=== PATIENT | female | born 1970 | race Caucasian/White ===

== ENCOUNTER 2016-08-12 09:37 | Emergency (ER) | payer BC ==
[2016-08-12] MEDS ORDERED: ONDANSETRON 4 MG/2 ML VIAL IVP ONE (10:03)
[2016-08-12] MEDS ORDERED: MORPHINE SULFATE 4 MG/1 ML IVP ONE ×2 (10:03→11:56)
[2016-08-12] MEDS ORDERED: Sodium Chloride 0.9% 1,000 ML PRIMARY IV ONE (10:03)
[2016-08-12 10:06] VITALS: TEMP 98.6
--- NOTE | 2016-08-12 10:10 | PDOC ---
Female Problem HPI - General Chief Complaint: Genitourinary Complaint Stated Complaint: LEFT LOWER ABD PAIN, DECR URINATION SINCE LAST NOC Date Seen by Provider: 08/12/16 Time Seen by Provider: 10:05 Source: POSITIVE: Patient Exam Limitations: POSITIVE: No limitations Nurse's Notes Reviewed & Considered: Yes - History of Present Illness Initial Comments: Patient was seen at the medical office building this morning because of left lower quadrant and suprapubic pain, as well as burning sensation in her bladder. She was sent here for further evaluation. Patient states that on July 24 she developed vaginal bleeding. This is the first she has had any vaginal bleeding since 2013. Her pain has continued to increase since July 24 and she continues to have some vaginal bleeding. She had an episode of diarrhea during the initial onset of symptoms but no further diarrhea. She has subjective fevers, chills and sweats. She doesn't presently have a headache. She does have sinus congestion. Denies any cough, shortness of breath, chest pain. Body Location Affected: REPORTS: Abdomen Timing: REPORTS: Constant Duration: >1 week Severity: Moderate Quality: REPORTS: Burning, "Pain", Sharpness, Stabbing, Throbbing Location of Pain: REPORTS: Left, Abdominal Pain, Sharp Vaginal Bleeding: REPORTS: Abnormal Bleeding : 2 Para: 2 : REPORTS: Post-Menopausal Sexual History: REPORTS: Active Urinary Symptoms: REPORTS: Blood in Urine Discharge: REPORTS: Vaginal Discharge (Blood discharge.) Recent Care Received: REPORTS: Recently Seen (Seen this morning at the medical office building.) Any Prior Injuries Related to Current Complaint?: No - Patient Home Medications Home Medications: Home Medications Cetirizine HCl 10 mg PO DAILY 03/02/14 Loratadine [Claritin] 10 mg PO DAILY 03/02/14 Fluticasone Propionate [Flonase Allergy Relief] 1 spr KATYA BID #1 spr 03/09/15 Bupropion HCl [Wellbutrin Sr] 150 mg ORAL BID #180 tab 01/10/16 Acetaminophen [Tylenol] 650 mg PO PRN PRN 08/12/16 - Patient Allergies Allergies/Adverse Reactions: Allergies Allergy/AdvReac Type Severity Reaction Status Date / Time Penicillins Allergy Unknown NOT Verified 08/12/16 09:50 APPLICABLE Past Medical History - heen HEENT History: Other (please comment) Additional HEENT History: WEARS GLASSES Cardiovascular History: Denies History Respiratory History: Other (please comment) Additional Respiratory History: SEASONAL ALLERGIES Gastrointestinal History: Other (please comment) Additional Gastrointestinal History: PILONIDAL CYST Genitourinary History: Denies History, Other (please comment) Additional Genitourinary History: KIDNEY INFECTION Endocrine History: Denies History Musculoskeletal History: Denies History Prosthesis or Implant: No Neurological History: Denies History Blood Disorders: Denies History Psychiatric History: Depression, Anxiety Disorders History of Sexually Transmitted Diseases: No Female Reproductive History: Other (please comment) Additional Female Reproductive History: UTERAL ABLATION 2013 LMP: 2013 Cancer History: Skin In Past Year Been Physically Harmed or Verbally Threatened: No (PER PATIENT) History of MDRO: No History of Other Communicable Diseases: No Tobacco Use: Never Smoker Alcohol Use: Occasionally Substance Use Type: None Previous Surgical History: Yes Type / Date of Surgery: PILONIDAL CYST REMOVAL. ABD LAPROSCOPY TO DETERMINE DIFFICULTIES. TUBAL LIGATION. UTERAL ABLATION 2013 Anesthesia Reactions: No Malignant Hyperthermia: No Family History of Malignant Hyperthermia: No Significant Family History: Other (please comment) Additional Family History: FATHER HTN. MOTHER HTN ROS - Limitations ROS Limitations: No Limitations Constitution: REPORTS: Chills, Fever Cardiovascular: REPORTS: Denies Cardiac Symptoms Respiratory: REPORTS: Denies Resp Symptoms Neurological: REPORTS: Headache Gastrointestinal: REPORTS: Abdominal Pain, Nausea Endocrine: REPORTS: Denies Symptoms Musculoskeletal: REPORTS: Denies MS Symptoms Genitourinary: REPORTS: Discharge, Hematuria Eyes: REPORTS: Denies Symptoms ENT: REPORTS: Denies Symptoms Skin: REPORTS: Denies Skin Symptoms Lympathic: REPORTS: Denies Lympathic Symptoms Immunologic: POSITIVE: Denies Symptoms Psychiatric: POSITIVE: Denies Psych Symptoms Female Genitourinary Exam - General Appearance General Appearance: POSITIVE: Alert, Cooperative, No Acute Distress, No Evidence of Trauma - HEENT HEENT: POSITIVE: Head Inspection Nml, Eyes Inspection Nml, Ears Inspection Nml, Nose Inspection Nml, PERRL, EOMI - Neck Neck: POSITIVE: Normal Inspection, No Apparent Injury - Respiratory Respiratory: POSITIVE: No Respiratory Distress, Breath Sounds Normal, Chest Non- Tender - Cardiovascular Cardiovascular: POSITIVE: Regular Rate and Rhythm, Heart Sounds Normal - Abdomen Abdomen: POSITIVE: Soft, Normal Bowel Sounds, Tenderness (Left lower quadrant, no guarding, no rebound.) - Back Back: POSITIVE: Normal Inspection - Genital / Rectal Pelvic Exam: POSITIVE: External Exam Normal - Skin Skin: POSITIVE: Intact, Normal For Race, Warm, Dry, No Rash - Extremities Extremity: Non-Tender: (All Extremities), Normal ROM: (All Extremities), Normal Inspection: (All Extremities) - Neurological / Psychological Neurological: POSITIVE: Affect Apporpriate, Oriented X3 Female Genitourinary Progress - Results Reviewed by me Xrays/CTs/US Reviewed by me: Yes Discussed with Radiologist: Yes Lab Results Reviewed: Yes Lab Results:: Laboratory Results 08/12/16 08/12/16 Range/Units 10:20 10:30 WBC 8.70 (4.8-10.8) 10^3/uL RBC 4.60 (4.20-5.40) 10^6/uL Hgb 13.2 (12.0-16.0) g/dL Hct 38.4 (37.0-47.0) % MCV 83.5 (81-99) FL MCH 28.7 (27-31) PG MCHC 34.4 (33-37) g/dL RDW Std Deviation 39.5 (39-50) fL RDW Coeff of [place] 13.1 (11.5-14.5) % Plt Count 272 (140-350) 10*3/uL MPV 9.6 (7.4-12.2) FL Immature Gran % (Auto) 0.1 (0-5) % Neut % (Auto) 67.9 (50-80) % Lymph % (Auto) 23.9 (10-50) % [place] % (Auto) 7.6 (5-15) % Eos % (Auto) 0.3 (0-8) % Baso % (Auto) 0.2 (0-1) % Immature Gran # (Auto) 0.01 10*3/UL Neut # (Auto) 5.90 10*3/UL Lymph # (Auto) 2.08 10*3/uL [place] # (Auto) 0.66 (0.3-0.8) 10*3/UL Eos # (Auto) 0.03 10*3/UL Baso # (Auto) 0.02 10*3/UL WBC Morphology Comment Normal morphology (NORM) Plt Morphology Comment Normal morphology (NORM) RBC Morph Comment Normal morphology (NORM) ESR 10 (0-20) MM/HR Sodium 141 (135-145) meq/L Potassium 4.4 (3.8-5.2) meq/L Chloride 106 (98-112) meq/L Carbon Dioxide 24 (23-33) meq/L Anion Gap 11 (5-20) BUN 15 (7-22) mg/dL Creatinine 0.7 (0.50-1.20) mg/dL Estimated GFR > 60 (>60 ml/min/1.73m(2)) BUN/Creatinine Ratio 21.42 H (6-20) Glucose 100 (78-110) mg/dL Calculated Osmolality 292.0 (267-292) mOsm/kg Calcium 9.1 (8.7-10.7) mg/dL Magnesium 1.8 (1.6-2.4) mg/dL Total Bilirubin 0.5 (0.3-1.2) mg/dL AST 17 (8-39) IU/L ALT 34 (9-52) IU/L Alkaline Phosphatase 77 (38-126) IU/L C-Reactive Protein 1.8 H (0.0-0.9) mg/dL Total Protein 7.6 (6.1-8.0) g/dL Albumin 4.3 (3.5-4.8) g/dL Globulin 3.3 (2.50-4.10) g/dL Albumin/Globulin Ratio 1.30 (1.3-2.0) mg/g HCG, Quant 2.39 mIU/ML Ur Collection Type Cath specimen Urine Color Yellow Urine Clarity Clear (CLEAR) Urine pH 6.0 (5.0-8.5) Ur Specific [place] 1.020 (1.005-1.030) Urine Protein Negative (NEG) mg/dl Urine Glucose (UA) Negative (NEG) mg/dL Urine Ketones Negative (NEG) Urine Occult Blood Trace-intact H (NEG) Urine Nitrate Negative (NEG) Urine Bilirubin Negative (NEG) Urine Urobilinogen 0.2 (0.2) EU/dL Ur Leukocyte Esterase Negative (NEG) Urine RBC 3-5 (NONE) /hpf Urine WBC None (NONE) Ur Squamous Epith Cells Rare (NONE) Ur Renal Epithelial Cell None (NONE) Urine Crystals None Urine Bacteria None (NONE) Urine Casts None (NONE) Urine Mucus None (NONE) Urine Trichomonas None (NONE) Urine Yeast None (NONE) Ur Culture Indicated? Culture not set - Patient's Progress Pain Medication Addressed: POSITIVE: Yes Re-Examine Time: 11:56 Status: POSITIVE: Improved MDM / ED Course: Patient brought back to the main emergency department, examined, an IV started, and sent to the lab for studies, radiographic examinations were obtained. Patient received a liter of normal saline, morphine sulfate, and Zofran. Her pain did improve. Findings: CBC is within normal limits, metabolic panel is unremarkable, urinalysis shows blood present but no bacteria. Of her abdomen and pelvis shows colonic diverticulitis. No perforations or free air are appreciated. Assessment: Diverticulitis Plan: Discharge home, Cipro, Flagyl, and [place] as prescribed. Khanh has instructions on liquids today, advance diet slowly over the next 3 or 4 days. Urgency department if fevers over 102.5, increased pain, blood in stool or vomitus. She is to follow-up with her primary care physician. - Consult Counseled: POSITIVE: Patient, Family, RE: Lab Results, RE: Radiology Results, RE : DX, RE: Need for F/U Patient Care Time - Estimated PCT Patient Care Time (In Minutes): 45 Vital Signs - Recent Vital Signs Vital Signs: Vital Signs (Last 8 hours) Temp Pulse Resp BP Pulse Ox 08/12/16 09:37 98.6 F 105 H 18 153/101 97 - VS Reviewed Vital Signs Reviewed: Yes Discharge Clinical Impression: Diverticulitis of intestine, Hematuria Discharge Disposition: Discharged to Home Condition: Stable Patient Instructions Given at Discharge: Diverticulitis (ED), Hematuria (ED)
[2016-08-12 10:27] LABS: BASOPHILS # (AUTO) 0.02 10*3/UL; BASOPHILS % (AUTO) 0.2 % (0-1); EOSINOPHILS % (AUTO) 0.3 % (0-8); HEMATOCRIT 38.4 % (37.0-47.0); HEMOGLOBIN 13.2 g/dL (12.0-16.0); IMM GRAN % (AUTO) 0.1 % (0-5); IMM GRAN# (AUTO) 0.01 10*3/UL; LYMPHOCYTES # (AUTO) 2.08 10*3/uL; LYMPHOCYTES % (AUTO) 23.9 % (10-50); MEAN CORPUSCULAR HEMOGLOBIN 28.7 PG (27-31); MEAN CORPUSCULAR HGB CONC 34.4 g/dL (33-37); MEAN PLATELET VOLUME 9.6 FL (7.4-12.2); MONOCYTES # (AUTO) 0.66 10*3/UL (0.3-0.8); MONOCYTES % (AUTO) 7.6 % (5-15); NEUTROPHILS % (AUTO) 67.9 % (50-80); RDW COEFFICIENT OF VARIATION 13.1 % (11.5-14.5)
[2016-08-12 10:40] LABS: ASPARTATE AMINO TRANSFERASE 17 IU/L (8-39); BILIRUBIN,TOTAL 0.5 mg/dL (0.3-1.2); BLOOD UREA NITROGEN 15 mg/dL (7-22); BUN/CREATININE RATIO 21.42 (6-20); C-REACTIVE PROTEIN 1.8 mg/dL (0.0-0.9); CALCIUM 9.1 mg/dL (8.7-10.7); CHLORIDE 106 meq/L (98-112); CREATININE 0.7 mg/dL (0.50-1.20); EST GLOMERULAR FILTRATION > 60 (>60 ml/min/1.73m(2)); GLUCOSE 100 mg/dL (78-110); MAGNESIUM 1.8 mg/dL (1.6-2.4); POTASSIUM 4.4 meq/L (3.8-5.2); SODIUM 141 meq/L (135-145); TOTAL PROTEIN 7.6 g/dL (6.1-8.0)
[2016-08-12 10:46] LABS: BILIRUBIN,URINE NEGATIVE (NEG); CLARITY,URINE CLEAR (CLEAR); GLUCOSE, URINE (UA) NEGATIVE (NEG); LEUKOCYTE ESTERASE ,URINE NEGATIVE (NEG); NITRATE,URINE NEGATIVE (NEG); OCCULT BLOOD,URINE Trace-intact (NEG); PROTEIN,URINE NEGATIVE (NEG); UROBILINOGEN,URINE 0.2 EU/dL (0.2)
[2016-08-12 10:51] LABS: PLATELET MORPHOLOGY COMMENT NORMAL MORPHOLOGY (NORM)
[2016-08-12 10:52] LABS: URINE SAMPLE TYPE CATH SPECIMEN
[2016-08-12 10:55] LABS: SQUAMOUS EPITHELIAL CELL,UR RARE
[2016-08-12 11:19] LABS: ERYTHROCYTE SEDIMENTATION RATE 10 MM/HR (0-20)
--- NOTE | 2016-08-12 11:43 | DI ---
HISTORY: Left lower quadrant pain and suprapubic pain. TECHNIQUE: CT images were obtained through the abdomen and pelvis with IV contrast. FINDINGS: There are inflammatory changes of the left lower quadrant surrounding multiple colonic div erticula. There is no free air nor abscess, but there is some simple fluid in the deep pelvis. Lung bases are clear. There is no lymphadenopathy. Liver, gallbladder, spleen, pancreas, adrenals and kidneys are unremarkable. IMPRESSION: 1. Acute sigmoid diverticulitis.
[2016-08-12] MEDS ORDERED: Ciprofloxacin 400mg (Premix) 400 MG in Dextrose 1 BAG IV ONE (11:50)
[2016-08-12] MEDS ORDERED: metroNIDAZOLE 500mg (Premix) 500 MG in Premix 1 BAG IV ONE (11:50)
[2016-08-12 15:05] VITALS: RESP 14
== END 2016-08-12 14:34 | disposition home or self-care (01) ==
LOC: ER 09:37
DX: K57.12 Diverticulitis of small intestine without perforation or abscess without bleeding (principal); R31.9 Hematuria, unspecified; R10.32 Left lower quadrant pain
CPT/HCPCS: 74177; 80053; 81001; 81003; 83735; 84702; 85025; 85652; 86140; 96361; 96365; 96367; 96375; 96376; 99283; J0744; J2270; J2405; J3490; J7030

== ENCOUNTER 2016-08-14 19:02 | Observation (INO) | payer BC ==
[2016-08-14] MEDS ORDERED: MORPHINE SULFATE 4 MG/1 ML IVP ONE (19:13)
[2016-08-14] MEDS ORDERED: Ciprofloxacin 400mg (Premix) 400 MG in Dextrose 1 BAG IV ONE (19:13)
[2016-08-14] MEDS ORDERED: metroNIDAZOLE 500mg (Premix) 500 MG in Premix 1 BAG IV ONE (19:13)
[2016-08-14] MEDS ORDERED: Sodium Chloride 0.9% 1,000 ML PRIMARY IV ONE ×3 (19:13→22:33)
[2016-08-14] MEDS ORDERED: ONDANSETRON 4 MG/2 ML VIAL IVP ONE (19:13)
--- NOTE | 2016-08-14 19:21 | PDOC ---
Abdomen/Flank HPI - General Chief Complaint: General Medical Stated Complaint: N/V--currently being treated for diverticulitis Date Seen by Provider: 08/14/16 Time Seen by Provider: 19:16 Source: POSITIVE: Patient Exam Limitations: POSITIVE: No limitations Nurse's Notes Reviewed & Considered: Yes - History of Present Illness Initial Comments: Patient comes in today with nausea vomiting and abdominal pain. Patient was seen here in the emergency department on Sunday with abdominal pain, diagnosed with diverticulitis. She was started on oral ciprofloxacin and metronidazole. Today she has been unable to keep her medications down. She states that she has had decreased passage of gas per rectum and no BM today. She has become increasingly uncomfortable as the day has progressed. She presently has a low-grade fever of 100. Body Location Affected: REPORTS: Abdomen Timing: REPORTS: Constant, Getting Worse Duration: <1 week Severity: Moderate Quality: REPORTS: Cramping, "Pain", Sharpness, Throbbing Abdominal Pain Onset Location: REPORTS: LLQ, Periumbilical Abdominal Pain Radiation: REPORTS: No radiation Context: REPORTS: None Modifying Factors: improves with: Nothing Associated Symptoms: REPORTS: Fever, Vomiting Similar Symptoms Previously: Yes Recent Care Received: REPORTS: Recently Seen, Treated by MD Any Prior Injuries Related to Current Complaint?: No - Patient Home Medications Home Medications: Home Medications Cetirizine HCl 10 mg PO DAILY 03/02/14 Loratadine [Claritin] 10 mg PO DAILY 03/02/14 Fluticasone Propionate [Flonase Allergy Relief] 1 spr KATYA BID #1 spr 03/09/15 Bupropion HCl [Wellbutrin Sr] 150 mg ORAL BID #180 tab 01/10/16 Acetaminophen [Tylenol] 650 mg PO PRN PRN 08/12/16 Ciprofloxacin HCl [Cipro HCl] 500 mg PO BID 08/14/16 metroNIDAZOLE Tab [Flagyl Tab] 500 mg PO BID 08/14/16 - Patient Allergies Allergies/Adverse Reactions: Allergies Allergy/AdvReac Type Severity Reaction Status Date / Time Penicillins Allergy Unknown NOT Verified 08/15/16 08:06 APPLICABLE Past Medical History - heen HEENT History: Other (please comment) Additional HEENT History: WEARS GLASSES Cardiovascular History: Denies History Respiratory History: Other (please comment) Additional Respiratory History: SEASONAL ALLERGIES Gastrointestinal History: Other (please comment) Additional Gastrointestinal History: PILONIDAL CYST Genitourinary History: Denies History, Other (please comment) Additional Genitourinary History: KIDNEY INFECTION Endocrine History: Denies History Musculoskeletal History: Denies History Prosthesis or Implant: No Neurological History: Denies History Blood Disorders: Denies History Psychiatric History: Depression, Anxiety Disorders History of Sexually Transmitted Diseases: No Cancer History: Skin History of MDRO: No History of Other Communicable Diseases: No Alcohol Use: Occasionally Substance Use Type: None Previous Surgical History: Yes Type / Date of Surgery: PILONIDAL CYST REMOVAL. ABD LAPROSCOPY TO DETERMINE DIFFICULTIES. TUBAL LIGATION. UTERAL ABLATION 2013 Anesthesia Reactions: No Malignant Hyperthermia: No Significant Family History: Other (please comment) Additional Family History: FATHER HTN. MOTHER HTN ROS - Limitations ROS Limitations: No Limitations Constitution: REPORTS: Chills, Fever Cardiovascular: REPORTS: Denies Cardiac Symptoms Respiratory: REPORTS: Denies Resp Symptoms Neurological: REPORTS: Denies Neuro Symptoms Gastrointestinal: REPORTS: Abdominal Pain, Nausea, Vomitting Endocrine: REPORTS: Denies Symptoms Musculoskeletal: REPORTS: Denies MS Symptoms Genitourinary: REPORTS: Denies Symptoms Eyes: REPORTS: Denies Symptoms ENT: REPORTS: Denies Symptoms Skin: REPORTS: Denies Skin Symptoms Lympathic: REPORTS: Denies Lympathic Symptoms Abdominal/Flank Pain PE - General Appearance General Appearance: POSITIVE: Alert, Cooperative, No Evidence of Trauma, Mild Distress - HEENT HEENT: POSITIVE: Head Inspection Nml, Eyes Inspection Nml, Ears Inspection Nml, Nose Inspection Nml, PERRL, EOMI - Neck Neck: POSITIVE: Normal Inspection - Respiratory Respiratory: POSITIVE: No Respiratory Distress, Breath Sounds Normal, Chest Non- Tender - Cardiovascular Cardiovascular: POSITIVE: Regular Rate and Rhythm, Heart Sounds Normal - Chest Chest: POSITIVE: Non Tender - Abdomen Abdomen: Soft: (All Quadrants), Normal Bowel Sounds: (All Quadrants), Denies Tenderness: (All Quadrants) - Back Back: POSITIVE: Normal Inspection - Skin Skin: POSITIVE: Intact, Normal For Race, Warm, Dry, No Rash - Extremities Extremity: Non-Tender: (All Extremities), Normal ROM: (All Extremities), Normal Inspection: (All Extremities) - Neurological Neurological: POSITIVE: Affect Apporpriate, Oriented X3 - Psychological Psychiatric: POSITIVE: Affect Appropriate, Mood Appropriate Abdomen Progress - Results Reviewed by me Xrays/CTs/US Reviewed by me: Yes Discussed with Radiologist: Yes Lab Results Reviewed: Yes Lab Results:: Laboratory Results 08/14/16 08/14/16 Range/Units 19:28 21:23 WBC 8.65 (4.8-10.8) 10^3/uL RBC 4.46 (4.20-5.40) 10^6/uL Hgb 13.0 (12.0-16.0) g/dL Hct 36.3 L (37.0-47.0) % MCV 81.4 (81-99) FL MCH 29.1 (27-31) PG MCHC 35.8 (33-37) g/dL RDW Std Deviation 36.5 L (39-50) fL RDW Coeff of [place] 12.5 (11.5-14.5) % Plt Count 284 (140-350) 10*3/uL MPV 9.6 (7.4-12.2) FL Immature Gran % (Auto) 0.1 (0-5) % Neut % (Auto) 64.3 (50-80) % Lymph % (Auto) 27.5 (10-50) % [place] % (Auto) 7.6 (5-15) % Eos % (Auto) 0.3 (0-8) % Baso % (Auto) 0.2 (0-1) % Immature Gran # (Auto) 0.01 10*3/UL Neut # (Auto) 5.55 10*3/UL Lymph # (Auto) 2.38 10*3/uL [place] # (Auto) 0.66 (0.3-0.8) 10*3/UL Eos # (Auto) 0.03 10*3/UL Baso # (Auto) 0.02 10*3/UL WBC Morphology Comment Normal morphology (NORM) Plt Morphology Comment Normal morphology (NORM) RBC Morph Comment Normal morphology (NORM) ESR 17 (0-20) MM/HR Sodium 138 (135-145) meq/L Potassium 3.8 (3.8-5.2) meq/L Chloride 104 (98-112) meq/L Carbon Dioxide 21 L (23-33) meq/L Anion Gap 13 (5-20) BUN 27 H (7-22) mg/dL Creatinine 1.9 H (0.50-1.20) mg/dL Estimated GFR 29 (>60 ml/min/1.73m(2)) BUN/Creatinine Ratio 14.21 (6-20) Glucose 98 (78-110) mg/dL Calculated Osmolality 290.0 (267-292) mOsm/kg Lactic Acid 1.0 (0.70-2.10) MMOL/L Calcium 9.4 (8.7-10.7) mg/dL Magnesium 1.8 (1.6-2.4) mg/dL Total Bilirubin 0.6 (0.3-1.2) mg/dL AST 22 (8-39) IU/L ALT 31 (9-52) IU/L Alkaline Phosphatase 72 (38-126) IU/L C-Reactive Protein 1.4 H (0.0-0.9) mg/dL Total Protein 7.4 (6.1-8.0) g/dL Albumin 4.2 (3.5-4.8) g/dL Globulin 3.2 (2.50-4.10) g/dL Albumin/Globulin Ratio 1.30 (1.3-2.0) mg/g - Patient's Progress Pain Medication Addressed: POSITIVE: Yes Status: POSITIVE: Improved MDM / ED Course: Patient was evaluated, an IV started and labs drawn. EKG of her abdomen was obtained. She received IV feeding, Zofran, and a liter of normal saline. Findings: Acute renal failure with an increase of her creatinine from 0.9 to 1.9 in 2 days. CBC shows white count remains in the normal range. CT scan reveals improving diverticulitis. Assessment: Diverticulitis improving on antibiotics. Acute renal injury with elevated creatinine most likely related to dehydration although I cannot rule out injury related to contrast dye from 2 days ago. Plan: Admission, hydration, and IV antibiotics. - Consult Consult (If Yes, Name of Consulting MD & Time Called): Yes (Dr. Adan) Consulting MD will see pt:: POSITIVE: [facility] [place] Admit Counseled: POSITIVE: Patient, Family, RE: Lab Results, RE: Radiology Results, RE : DX Patient Care Time - Estimated PCT Patient Care Time (In Minutes): 45 Vital Signs - Recent Vital Signs Vital Signs: Vital Signs (Last 8 hours) Temp Pulse Pulse Resp BP Pulse Ox 08/15/16 07:14 98.7 F 70 18 130/80 94 08/15/16 04:36 98.4 F 73 16 133/82 95 08/15/16 03:00 62 - VS Reviewed Vital Signs Reviewed: Yes Discharge Clinical Impression: Dehydration, Acute kidney injury, Nausea and vomiting, Dehydration, Diverticulitis Discharge Disposition: Admit to Inpatient Condition: Stable Date Decision to Admit to Inpatient: 08/14/16 Time Decision to Admit to Inpatient: 21:20
[2016-08-14 19:31] LABS: BASOPHILS # (AUTO) 0.02 10*3/UL; BASOPHILS % (AUTO) 0.2 % (0-1); EOSINOPHILS % (AUTO) 0.3 % (0-8); HEMATOCRIT 36.3 % (37.0-47.0); IMM GRAN % (AUTO) 0.1 % (0-5); IMM GRAN# (AUTO) 0.01 10*3/UL; LYMPHOCYTES # (AUTO) 2.38 10*3/uL; LYMPHOCYTES % (AUTO) 27.5 % (10-50); MEAN CORPUSCULAR HEMOGLOBIN 29.1 PG (27-31); MEAN CORPUSCULAR HGB CONC 35.8 g/dL (33-37); MEAN PLATELET VOLUME 9.6 FL (7.4-12.2); MONOCYTES # (AUTO) 0.66 10*3/UL (0.3-0.8); MONOCYTES % (AUTO) 7.6 % (5-15); NEUTROPHILS # (AUTO) 5.55 10*3/UL; NEUTROPHILS % (AUTO) 64.3 % (50-80); RDW COEFFICIENT OF VARIATION 12.5 % (11.5-14.5); RED BLOOD COUNT 4.46 10^6/uL (4.20-5.40); WHITE BLOOD COUNT 8.65 10^3/uL (4.8-10.8)
[2016-08-14 19:33] LABS: PLATELET MORPHOLOGY COMMENT NORMAL MORPHOLOGY (NORM)
[2016-08-14 19:42] LABS: BILIRUBIN,TOTAL 0.6 mg/dL (0.3-1.2); BUN/CREATININE RATIO 14.21 (6-20); C-REACTIVE PROTEIN 1.4 mg/dL (0.0-0.9); CALCIUM 9.4 mg/dL (8.7-10.7); CREATININE 1.9 mg/dL (0.50-1.20); MAGNESIUM 1.8 mg/dL (1.6-2.4); POTASSIUM 3.8 meq/L (3.8-5.2); TOTAL PROTEIN 7.4 g/dL (6.1-8.0)
[2016-08-14 20:08] LABS: ERYTHROCYTE SEDIMENTATION RATE 17 MM/HR (0-20)
[2016-08-14] MEDS ORDERED: Prochlorperazine Edisylate Inj 10mg/2ml vial IVP ONE (20:17)
--- NOTE | 2016-08-14 21:34 | DI ---
CT ABDOMEN SCAN WITHOUT IV CONTRAST, 08/14/2016 8:32 PM : Clinical History: Abdominal pain with known acute diverticulitis. Previous Exam: 08/12/2016. Scans are performed from the lower lung bases through the liver and kidneys without IV contrast. Sagi ttal and coronal reformatted images are generated. The patient has developed renal insufficiency sinc e the previous study. The lung bases are clear. The liver is normal. The gallbladder is grossly normal. There is no abnorma lity of the pancreas and adrenal glands. The spleen is normal and there are punctate calcifications p resent indicating previous exposure to most likely to TB or histoplasmosis. Both kidneys are normal i n size, shape, position and contour. There is no hydronephrosis or hydroureter. No renal or ureteral calculi are present. There are no abnormal retrocrural or periaortic nodes. No ascites is present. READING: Normal CT abdomen scan. There is no evidence of obstructive uropathy. CT PELVIS SCAN WITHOUT IV CONTRAST, 08/14/2016 8:32 PM : Clinical History: See above. Previous Exam: 08/12/2016. Scans are performed from the inferior margin of the liver and kidneys to the symphysis pubis without IV contrast. No adenopathy is present. There is a small amount of fluid in the cul-de-sac similar to the previous study. The appendix is normal. The small bowel, terminal ileum, and ileocecal valve are normal. On e previous study, there was a focus of periserosal inflammatory/infiltrative change in the proximal s igmoid colon where diverticula are present. On the current study, there has been improvement of this condition with reduction of the periserosal inflammatory change. There is still thickening of the muc khushi indicating bowel wall inflammatory change. There are no hernias. The uterus is enlarged and measu res approximately 55 x 75 x 90 mm. The ovaries are normal. READIN. Acute diverticulitis changes in the proximal sigmoid colon have improved since the previous study but have not resolved completely. There is a small amount of fluid in the cul-de-sac. 2. The uterus is enlarged. The ovaries are normal.
--- NOTE | 2016-08-14 21:43 | PDOC ---
History and Physical - History of Present Illness Chief Complaint: Abdominal pain History of Present Illness: Is a very nice 45-year-old female with past medical history significant for allergies was seen in the ER 2 days ago with abdominal pain and was diagnosed with diverticulitis by CT. She comes back today complaining of nausea and vomiting unable to keep any food or liquids down or her meds also complaining of abdominal pain or evaluation CT revealed improved diverticulitis she did have gas yesterday and her last bowel movement was 2 days ago and on CT according to which the ER doc spoke to the was no obstruction. Patient looks very dehydrated . Labs also reveal acute kidney injury with a creatinine of 1.9 which I believe is prerenal but we will do an ultrasound that showed a normal blockage. Denies any dysuria hematuria chest pain headaches double vision Past Medical History Medical History: Allergies, depression Tobacco Use: Never Smoker Substance Use Type: None Alcohol Use: None Medication / Allergies Home Medications: Home Medications Medication Instructions Recorded Confirmed Type Cetirizine HCl 10 mg PO DAILY 03/02/14 08/14/16 History Loratadine [Claritin] 10 mg PO DAILY 03/02/14 08/14/16 History Fluticasone Propionate [Flonase 1 spr KATYA BID #1 spr 03/09/15 08/14/16 Clinic Allergy Relief] Bupropion HCl [Wellbutrin Sr] 150 mg ORAL BID #180 tab 01/10/16 08/14/16 Clinic Acetaminophen [Tylenol] 650 mg PO PRN PRN 08/12/16 08/14/16 History Ciprofloxacin HCl [Cipro HCl] 500 mg PO BID 08/14/16 08/14/16 History metroNIDAZOLE Tab [Flagyl Tab] 500 mg PO BID 08/14/16 08/14/16 History Allergies/Adverse Reactions: Allergies Allergy/AdvReac Type Severity Reaction Status Date / Time Penicillins Allergy Unknown NOT Verified 08/14/16 19:08 APPLICABLE Review of Systems - Review of Systems All Systems: Reviewed & No Additional Complaints Except as Stated - Respiratory Respiratory: DENIES: Negative System Review, Cough, Sputum, Dyspnea At Rest, Dyspnea with Exertion, Pleuritic Pain, Hemoptysis, Wheezing, Other, See HPI - Cardiovascular Cardiovascular: DENIES: Negative System Review, Chest Pain, Edema, Syncope, Palpitations, Orthopnea, Paroxysmal Nocturnal Dyspnea, Other, See HPI - Gastrointestinal Gastrointestinal / Abdominal: REPORTS: Nausea, Vomiting, Abdominal Pain - Gynecological Gynecological: DENIES: Negative System Review, Vaginal Bleeding, Vaginal Discharge, Pelvic Pain, Breast Tenderness, Breast Mass, Breast Discharge, Other , See HPI Exam - Vitals Vital Signs: Vital Signs Temperature 99.9 F Temperature Source Temporal Artery Scan Pulse Rate [Pulse Oximeter] 101 Respiratory Rate 18 Blood Pressure [Left Arm] 125/95 Pulse Ox 100 Oxygen Delivery Method Room Air Height 5 ft 4 in Weight 74.389 kg - General General Appearance: POSITIVE: No Acute Distress, Cooperative - Eye Eye Exam: POSITIVE: Normal Appearance, PERRL, EOMI - Respiratory Respiratory Exam: POSITIVE: Clear to Auscultation - Bilaterally, Breathing Non Labored, Normal To Percussion, Normal to Percussion and Palpation - Cardiovascular Cardiovascular Exam: POSITIVE: RRR, No Murmur, No Clicks, No Gallops - GI/Abdominal GI/Abdominal Exam: POSITIVE: Soft. NEGATIVE: No Masses Additional GI/Abdominal Exam Details: Numbness in the left lower car quadrant mild right lower quadrant and the below the umbilicus no guarding - Extremities Extremities Exam: POSITIVE: No Clubbing Present, No Edema Present, No Cyanosis Present - Neurological Neurological Exam: POSITIVE: Alert, Oriented x 3, CN II-XII Intact, No Facial Droop, Speech Intact / Clear Results - Labs CBC and BMP: 08/14/16 19:28 08/14/16 19:28 Labs - Last 24 Hours: Laboratory Results 08/14/16 Range/Units 19:28 WBC 8.65 (4.8-10.8) 10^3/uL RBC 4.46 (4.20-5.40) 10^6/uL Hgb 13.0 (12.0-16.0) g/dL Hct 36.3 L (37.0-47.0) % MCV 81.4 (81-99) FL MCH 29.1 (27-31) PG MCHC 35.8 (33-37) g/dL RDW Std Deviation 36.5 L (39-50) fL RDW Coeff of [place] 12.5 (11.5-14.5) % Plt Count 284 (140-350) 10*3/uL MPV 9.6 (7.4-12.2) FL Immature Gran % (Auto) 0.1 (0-5) % Neut % (Auto) 64.3 (50-80) % Lymph % (Auto) 27.5 (10-50) % [place] % (Auto) 7.6 (5-15) % Eos % (Auto) 0.3 (0-8) % Baso % (Auto) 0.2 (0-1) % Immature Gran # (Auto) 0.01 10*3/UL Neut # (Auto) 5.55 10*3/UL Lymph # (Auto) 2.38 10*3/uL [place] # (Auto) 0.66 (0.3-0.8) 10*3/UL Eos # (Auto) 0.03 10*3/UL Baso # (Auto) 0.02 10*3/UL WBC Morphology Comment Normal morphology (NORM) Plt Morphology Comment Normal morphology (NORM) RBC Morph Comment Normal morphology (NORM) ESR 17 (0-20) MM/HR Sodium 138 (135-145) meq/L Potassium 3.8 (3.8-5.2) meq/L Chloride 104 (98-112) meq/L Carbon Dioxide 21 L (23-33) meq/L Anion Gap 13 (5-20) BUN 27 H (7-22) mg/dL Creatinine 1.9 H (0.50-1.20) mg/dL Estimated GFR 29 (>60 ml/min/1.73m(2)) BUN/Creatinine Ratio 14.21 (6-20) Glucose 98 (78-110) mg/dL Calculated Osmolality 290.0 (267-292) mOsm/kg Calcium 9.4 (8.7-10.7) mg/dL Magnesium 1.8 (1.6-2.4) mg/dL Total Bilirubin 0.6 (0.3-1.2) mg/dL AST 22 (8-39) IU/L ALT 31 (9-52) IU/L Alkaline Phosphatase 72 (38-126) IU/L C-Reactive Protein 1.4 H (0.0-0.9) mg/dL Total Protein 7.4 (6.1-8.0) g/dL Albumin 4.2 (3.5-4.8) g/dL Globulin 3.2 (2.50-4.10) g/dL Albumin/Globulin Ratio 1.30 (1.3-2.0) mg/g Assessment and Plan - Patient Problems (1) Diverticulitis Current Visit: No Status: Acute (2) Dehydration Current Visit: Yes Status: Acute (3) Acute kidney injury Current Visit: Yes Status: Acute (4) Nausea and vomiting Current Visit: Yes Status: Acute - Assessment / Plan Additional Assessment/Plan Details: This very nice 45-year-old female who comes in with abdominal pain secondary to diverticulitis dehydration with nausea and vomiting also was found to be in acute kidney injury we will admit her IV fluids to 125 an hour normal saline we will also give her another 1 L bolus. I will also order a retroperitoneal ultrasound evaluating her kidneys make sure there is no obstruction CAT scan actually revealed no obstruction of her abdomen abdomen and improvement of her diverticulitis will also complete continue with IV Cipro and Flagyl A she agrees with the above plan
[2016-08-14] MEDS ORDERED: Sodium Chloride 0.9% 1,000 ML IV SCH (21:45)
[2016-08-14] MEDS ORDERED: Ciprofloxacin 400mg (Premix) 400 MG in Dextrose 1 BAG IV SCH (21:45)
[2016-08-14] MEDS ORDERED: metroNIDAZOLE 500mg (Premix) 500 MG in Premix 1 BAG IV SCH (21:45)
[2016-08-14] MEDS ORDERED: NORMAL SALINE 10 ML SYRINGE FLUSH IVP PRN (22:33)
[2016-08-14] MEDS ORDERED: ONDANSETRON 4 MG/2 ML VIAL IVP PRN (22:33)
[2016-08-14] MEDS: HEPARIN 5000 UNIT/1 ML SUBCUT SCH (23:22)
[2016-08-15] MEDS: Sodium Chloride 0.9% 1,000 ML IV SCH ×3 (00:26→19:33)
[2016-08-15] MEDS: HEPARIN 5000 UNIT/1 ML SUBCUT SCH ×2 (05:32→17:02)
[2016-08-15] MEDS: metroNIDAZOLE 500mg (Premix) 500 MG in Premix 1 BAG IV SCH ×3 (05:33→20:00)
[2016-08-15 06:08] LABS: BASOPHILS # (AUTO) 0.01 10*3/UL; BASOPHILS % (AUTO) 0.1 % (0-1); EOSINOPHILS % (AUTO) 0.4 % (0-8); HEMOGLOBIN 11.1 g/dL (12.0-16.0); IMM GRAN % (AUTO) 0.1 % (0-5); IMM GRAN# (AUTO) 0.01 10*3/UL; LYMPHOCYTES # (AUTO) 1.54 10*3/uL; MEAN CORPUSCULAR HGB CONC 33.6 g/dL (33-37); MEAN PLATELET VOLUME 10.2 FL (7.4-12.2); MONOCYTES # (AUTO) 0.65 10*3/UL (0.3-0.8); MONOCYTES % (AUTO) 8.9 % (5-15); NEUTROPHILS # (AUTO) 5.08 10*3/UL; NEUTROPHILS % (AUTO) 69.5 % (50-80); RDW COEFFICIENT OF VARIATION 12.6 % (11.5-14.5); RED BLOOD COUNT 3.97 10^6/uL (4.20-5.40); WHITE BLOOD COUNT 7.32 10^3/uL (4.8-10.8)
[2016-08-15 06:11] LABS: BILIRUBIN,TOTAL 0.4 mg/dL (0.3-1.2); BUN/CREATININE RATIO 12.35 (6-20); CALCIUM 7.9 mg/dL (8.7-10.7); CREATININE 1.7 mg/dL (0.50-1.20); POTASSIUM 3.8 meq/L (3.8-5.2); TOTAL PROTEIN 5.9 g/dL (6.1-8.0)
[2016-08-15 06:16] LABS: PLATELET MORPHOLOGY COMMENT NORMAL MORPHOLOGY (NORM)
[2016-08-15] MEDS: LORATADINE 10 MG TABLET PO SCH (08:06)
[2016-08-15] MEDS: BuPROPion SR Tab 150 MG TAB PO SCH ×2 (08:06→21:28)
--- NOTE | 2016-08-15 09:42 | DI ---
BILATERAL RENAL ULTRASOUND, 08/15/2016 7:44 AM: Clinical History: Acute kidney injury. Previous Exam: None at this facility. Scans are performed through both kidneys in multiple projections. The right kidney measures 117 mm, a nd the left kidney measures 123 mm. There is no solid or cystic mass in either kidney. There is no hy dronephrosis or hydroureter. Perfusion to both kidneys is symmetric and normal. The bladder is normal . Bilateral ureteral jets are visualized. There is an estimated prevoid bladder volume of 500 - 510 m L. No post void images were obtained.. Reading: Normal bilateral renal ultrasound. The bladder is normal.
[2016-08-15] MEDS: Ciprofloxacin 400mg (Premix) 400 MG in Dextrose 1 BAG IV SCH ×2 (09:43→21:28)
--- NOTE | 2016-08-15 12:47 | PDOC(PROG) ---
Interval History: Patient looks much better today no nausea no vomiting keeping some clear liquids down seems to be getting rehydrated overall looks improved still some mild abdominal pain but better than yesterday Objective : Data - Labs CBC and BMP: 08/15/16 05:17 08/15/16 05:17 Labs - Last 24 Hours: Laboratory Results 08/15/16 Range/Units 05:17 WBC 7.32 (4.8-10.8) 10^3/uL RBC 3.97 L (4.20-5.40) 10^6/uL Hgb 11.1 L (12.0-16.0) g/dL Hct 33.0 L (37.0-47.0) % MCV 83.1 (81-99) FL MCH 28.0 (27-31) PG MCHC 33.6 (33-37) g/dL RDW Std Deviation 37.7 L (39-50) fL RDW Coeff of [place] 12.6 (11.5-14.5) % Plt Count 231 (140-350) 10*3/uL MPV 10.2 (7.4-12.2) FL Immature Gran % (Auto) 0.1 (0-5) % Neut % (Auto) 69.5 (50-80) % Lymph % (Auto) 21.0 (10-50) % [place] % (Auto) 8.9 (5-15) % Eos % (Auto) 0.4 (0-8) % Baso % (Auto) 0.1 (0-1) % Immature Gran # (Auto) 0.01 10*3/UL Neut # (Auto) 5.08 10*3/UL Lymph # (Auto) 1.54 10*3/uL [place] # (Auto) 0.65 (0.3-0.8) 10*3/UL Eos # (Auto) 0.03 10*3/UL Baso # (Auto) 0.01 10*3/UL WBC Morphology Comment Normal morphology (NORM) Plt Morphology Comment Normal morphology (NORM) RBC Morph Comment Normal morphology (NORM) Sodium 143 (135-145) meq/L Potassium 3.8 (3.8-5.2) meq/L Chloride 113 H (98-112) meq/L Carbon Dioxide 21 L (23-33) meq/L Anion Gap 9 (5-20) BUN 21 (7-22) mg/dL Creatinine 1.7 H (0.50-1.20) mg/dL Estimated GFR 33 (>60 ml/min/1.73m(2)) BUN/Creatinine Ratio 12.35 (6-20) Glucose 103 (78-110) mg/dL Calculated Osmolality 298.0 H (267-292) mOsm/kg Calcium 7.9 L (8.7-10.7) mg/dL Total Bilirubin 0.4 (0.3-1.2) mg/dL AST 19 (8-39) IU/L ALT 30 (9-52) IU/L Alkaline Phosphatase 57 (38-126) IU/L Total Protein 5.9 L (6.1-8.0) g/dL Albumin 3.2 L (3.5-4.8) g/dL Globulin 2.7 (2.50-4.10) g/dL Albumin/Globulin Ratio 1.10 L (1.3-2.0) mg/g Objective : Exam - General General Appearance: Cooperative - Respiratory Respiratory Exam: Clear to Auscultation - Bilaterally, Breathing Non Labored, Normal To Percussion, Normal to Percussion and Palpation - Cardiovascular Cardiovascular Exam: RRR, No Murmur, No Clicks, No Gallops - GI/Abdominal GI/Abdominal Exam: Non Distended, Soft Additional GI/Abdominal Exam Details: Still mild tenderness left lower quadrant but much improved since yesterday - Extremities Extremities Exam: No Clubbing Present, No Edema Present, No Cyanosis Present Assessment and Plan - Patient Problems (1) Diverticulitis Current Visit: Yes Status: Acute Comment: Continue IV Cipro and Flagyl seems to be improving less pain (2) Dehydration Current Visit: Yes Status: Acute Comment: Improving continue normal saline at 125 an hour (3) Acute kidney injury Current Visit: Yes Status: Acute Comment: Seems to be improving most likely prerenal ultrasound revealed no obstruction continue IV fluids check labs in the morning (4) Nausea and vomiting Current Visit: Yes Status: Acute Comment: Resolving
[2016-08-16] MEDS: HEPARIN 5000 UNIT/1 ML SUBCUT SCH ×2 (01:22→08:33)
[2016-08-16] MEDS: metroNIDAZOLE 500mg (Premix) 500 MG in Premix 1 BAG IV SCH (05:29)
[2016-08-16 06:23] LABS: ASPARTATE AMINO TRANSFERASE 15 IU/L (8-39); BILIRUBIN,TOTAL 0.3 mg/dL (0.3-1.2); BLOOD UREA NITROGEN 8 mg/dL (7-22); BUN/CREATININE RATIO 8.88 (6-20); CALCIUM 8.2 mg/dL (8.7-10.7); CHLORIDE 109 meq/L (98-112); CREATININE 0.9 mg/dL (0.50-1.20); EST GLOMERULAR FILTRATION > 60 (>60 ml/min/1.73m(2)); GLUCOSE 94 mg/dL (78-110); POTASSIUM 3.1 meq/L (3.8-5.2); SODIUM 140 meq/L (135-145)
[2016-08-16] MEDS: Sodium Chloride 0.9% 1,000 ML IV SCH (06:49)
[2016-08-16 07:48] VITALS: RESP 16; TEMP 97.7
[2016-08-16] MEDS: Ciprofloxacin 400mg (Premix) 400 MG in Dextrose 1 BAG IV SCH (08:33)
[2016-08-16] MEDS: BuPROPion SR Tab 150 MG TAB PO SCH (08:34)
[2016-08-16] MEDS: LORATADINE 10 MG TABLET PO SCH (08:34)
[2016-08-16] MEDS ORDERED: CIPROFLOXACIN 500 MG TABLET PO SCH (09:00)
[2016-08-16] MEDS ORDERED: metroNIDAZOLE Tab 500 MG TAB PO SCH (09:00)
[2016-08-16] MEDS ORDERED: POTASSIUM CHLORIDE 20 MEQ TAB PO SCH (09:00)
[2016-08-16] MEDS ORDERED: Magnesium Sulfate 2gm (Premix) 2 GM in Premix 1 BAG IV ONE (11:09)
--- NOTE | 2016-08-16 11:20 | DCSUMMARY ---
Hospitalization Summary Hospital Course: Final Discharge Diagnosis: Current Visit Problems Problem Status Priority Diagnosed Code Acute kidney injury Acute N17.9 Dehydration Acute E86.0 Dehydration Acute E86.0 Diverticulitis Acute K57.92 Nausea and vomiting Acute R11.2 Diagnostic Data, Laboratory Data, and Procedures of Signifigance: Laboratory Results 08/14/16 08/14/16 08/15/16 Range/Units 19:28 21:23 05:17 WBC 8.65 7.32 (4.8-10.8) 10^3/uL RBC 4.46 3.97 L (4.20-5.40) 10^6/uL Hgb 13.0 11.1 L (12.0-16.0) g/dL Hct 36.3 L 33.0 L (37.0-47.0) % MCV 81.4 83.1 (81-99) FL MCH 29.1 28.0 (27-31) PG MCHC 35.8 33.6 (33-37) g/dL RDW Std Deviation 36.5 L 37.7 L (39-50) fL RDW Coeff of [place] 12.5 12.6 (11.5-14.5) % Plt Count 284 231 (140-350) 10*3/uL MPV 9.6 10.2 (7.4-12.2) FL Immature Gran % (Auto) 0.1 0.1 (0-5) % Neut % (Auto) 64.3 69.5 (50-80) % Lymph % (Auto) 27.5 21.0 (10-50) % [place] % (Auto) 7.6 8.9 (5-15) % Eos % (Auto) 0.3 0.4 (0-8) % Baso % (Auto) 0.2 0.1 (0-1) % Immature Gran # (Auto) 0.01 0.01 10*3/UL Neut # (Auto) 5.55 5.08 10*3/UL Lymph # (Auto) 2.38 1.54 10*3/uL [place] # (Auto) 0.66 0.65 (0.3-0.8) 10*3/UL Eos # (Auto) 0.03 0.03 10*3/UL Baso # (Auto) 0.02 0.01 10*3/UL WBC Morphology Comment Normal morphology Normal morphology (NORM) Plt Morphology Comment Normal morphology Normal morphology (NORM) RBC Morph Comment Normal morphology Normal morphology (NORM) ESR 17 (0-20) MM/HR Sodium 138 143 (135-145) meq/L Potassium 3.8 3.8 (3.8-5.2) meq/L Chloride 104 113 H (98-112) meq/L Carbon Dioxide 21 L 21 L (23-33) meq/L Anion Gap 13 9 (5-20) BUN 27 H 21 (7-22) mg/dL Creatinine 1.9 H 1.7 H (0.50-1.20) mg/dL Estimated GFR 29 33 (>60 ml/min/1.73m(2)) BUN/Creatinine Ratio 14.21 12.35 (6-20) Glucose 98 103 (78-110) mg/dL Calculated Osmolality 290.0 298.0 H (267-292) mOsm/kg Lactic Acid 1.0 (0.70-2.10) MMOL/L Calcium 9.4 7.9 L (8.7-10.7) mg/dL Magnesium 1.8 (1.6-2.4) mg/dL Total Bilirubin 0.6 0.4 (0.3-1.2) mg/dL AST 22 19 (8-39) IU/L ALT 31 30 (9-52) IU/L Alkaline Phosphatase 72 57 (38-126) IU/L C-Reactive Protein 1.4 H (0.0-0.9) mg/dL Total Protein 7.4 5.9 L (6.1-8.0) g/dL Albumin 4.2 3.2 L (3.5-4.8) g/dL Globulin 3.2 2.7 (2.50-4.10) g/dL Albumin/Globulin Ratio 1.30 1.10 L (1.3-2.0) mg/g 08/16/16 Range/Units 05:50 WBC (4.8-10.8) 10^3/uL RBC (4.20-5.40) 10^6/uL Hgb (12.0-16.0) g/dL Hct (37.0-47.0) % MCV (81-99) FL MCH (27-31) PG MCHC (33-37) g/dL RDW Std Deviation (39-50) fL RDW Coeff of [place] (11.5-14.5) % Plt Count (140-350) 10*3/uL MPV (7.4-12.2) FL Immature Gran % (Auto) (0-5) % Neut % (Auto) (50-80) % Lymph % (Auto) (10-50) % [place] % (Auto) (5-15) % Eos % (Auto) (0-8) % Baso % (Auto) (0-1) % Immature Gran # (Auto) 10*3/UL Neut # (Auto) 10*3/UL Lymph # (Auto) 10*3/uL [place] # (Auto) (0.3-0.8) 10*3/UL Eos # (Auto) 10*3/UL Baso # (Auto) 10*3/UL WBC Morphology Comment (NORM) Plt Morphology Comment (NORM) RBC Morph Comment (NORM) ESR (0-20) MM/HR Sodium 140 (135-145) meq/L Potassium 3.1 L (3.8-5.2) meq/L Chloride 109 (98-112) meq/L Carbon Dioxide 22 L (23-33) meq/L Anion Gap 9 (5-20) BUN 8 (7-22) mg/dL Creatinine 0.9 (0.50-1.20) mg/dL Estimated GFR > 60 (>60 ml/min/1.73m(2)) BUN/Creatinine Ratio 8.88 (6-20) Glucose 94 (78-110) mg/dL Calculated Osmolality 287.0 (267-292) mOsm/kg Lactic Acid (0.70-2.10) MMOL/L Calcium 8.2 L (8.7-10.7) mg/dL Magnesium (1.6-2.4) mg/dL Total Bilirubin 0.3 (0.3-1.2) mg/dL AST 15 (8-39) IU/L ALT 28 (9-52) IU/L Alkaline Phosphatase 54 (38-126) IU/L C-Reactive Protein (0.0-0.9) mg/dL Total Protein 6.0 L (6.1-8.0) g/dL Albumin 3.2 L (3.5-4.8) g/dL Globulin 2.8 (2.50-4.10) g/dL Albumin/Globulin Ratio 1.10 L (1.3-2.0) mg/g Course of Hospitalization: Is a very nice 45-year-old female past medical history significant for depression was seen in the ER initially for abdominal pain and diagnosed with acute diverticulitis by CT scan was sent home on by mouth antibiotics. Over the next few days a she was unable to keep any oral fluids or oral solids down with nausea and vomiting comes back to the ER and appeared to be very dehydrated with also acute kidney injury most likely prerenal was admitted to the hospital her electrolytes were replaced and she was put on IV Flagyl and IV Cipro her abdominal pain improved. Kidney ultrasound showed no hydroureter obstruction. WBCs remain normal patient was rehydrated acute kidney injury is also resolved she tolerated her breakfast we will advance to regular diet for lunch switch to oral antibiotics which she already has at home also give her 2 mg of magnesium and if she tolerates her lunch which she will be discharged home in stable and improved condition On the date of discharge, the patient was examined: Gen.: No acute distress, alert, nontoxic Heart: Regular rate and rhythm, no murmurs, clicks, gallops, or rubs Lungs: Clear to auscultation bilaterally, breathing is nonlabored Abdomen/GI: Normal tones on auscultation, soft, nontender, nondistended Musculoskeletal/extremities: No clubbing, cyanosis, or edema Vitals reviewed and are listed below Vital Signs (24 hrs) Temp Pulse Pulse Pulse Resp BP Pulse Ox 08/16/16 07:47 97.7 F 68 16 128/77 95 08/16/16 04:35 98.3 F 89 18 122/75 97 08/16/16 03:00 50 L 08/16/16 00:17 98.1 F 72 16 110/54 96 08/15/16 23:00 73 08/15/16 20:43 98.4 F 76 18 116/67 95 08/15/16 19:00 75 74 08/15/16 17:54 80 08/15/16 16:24 98.1 F 68 18 134/77 95 08/15/16 11:20 98.7 F 72 18 138/87 95 Assessment and Plan: 1. As per discharge assessments above 2. Disposition: Home 3. Condition on discharge, stable and improved. 4. Diet: regular diet 5. Activities: resume normal activities 6. Follow-Up: Dr. ailyn Guzman possible colonoscopy 1. PCP 2. 7. Medications at the Time of Discharge: Home Medications Medication Instructions Recorded Confirmed Type Cetirizine HCl 10 mg PO DAILY 03/02/14 08/14/16 History Loratadine [Claritin] 10 mg PO DAILY 03/02/14 08/14/16 History Fluticasone Propionate [Flonase 1 spr KATYA BID #1 spr 03/09/15 08/14/16 Clinic Allergy Relief] Bupropion HCl [Wellbutrin Sr] 150 mg ORAL BID #180 tab 01/10/16 08/14/16 Clinic Acetaminophen [Tylenol] 650 mg PO PRN PRN 08/12/16 08/14/16 History Ciprofloxacin HCl [Cipro HCl] 500 mg PO BID 08/14/16 08/14/16 7 more days metroNIDAZOLE Tab [Flagyl Tab] 500 mg PO BID 08/14/16 08/14/16 7 more days Potassium Chloride 20 meq PO DAILY #7 tab 08/16/16 Rx 8. Time, care, counseling and coordination of care for this discharge is greater than 30 minutes. Exam - Vitals Vital Signs: Vital Signs Temperature 97.7 F Temperature Source Temporal Artery Scan Pulse Rate [Apical] 74 Pulse Rate [Pulse Oximeter] 68 Pulse Rate 50 Respiratory Rate 16 Blood Pressure [Left Arm] 128/77 Blood Pressure 121/78 Pulse Ox 95 Oxygen Delivery Method Room Air Height 5 ft 3 in Weight 76.204 kg Patient Problems - Patient Problem List (1) Diverticulitis Current Visit: Yes Status: Acute (2) Dehydration Current Visit: Yes Status: Acute (3) Acute kidney injury Current Visit: Yes Status: Acute (4) Nausea and vomiting Current Visit: Yes Status: Acute
== END 2016-08-16 13:10 | disposition home or self-care (01) ==
LOC: ER 19:02 → MED/SURG 21:27
PROVIDERS: ADMIT Internal Medicine; ATTEND Internal Medicine
DX: E86.0 Dehydration (principal); N17.9 Acute kidney failure, unspecified; R11.2 Nausea with vomiting, unspecified; K57.92 Diverticulitis of intestine, part unspecified, without perforation or abscess without bleeding
CPT/HCPCS: 36415; 74176; 76770; 80053; 83605; 83735; 85025; 85652; 86140; 96361; 96365; 96366; 96367; 96368; 96375; 99284; J0744; J0780; J1644; J2270; J2405; J3475; J3490; J7030

== ENCOUNTER → 2016-10-05 | Outpatient (CLI) | payer BC ==
--- NOTE | 2016-10-05 17:04 | DI ---
CT ABDOMEN SCAN WITH IV CONTRAST, 10/05/2016 12:44 PM : Clinical History: Acute diverticulitis. Previous Exam: 08/12/2016 and 08/14/2016. Scans are performed from the lower lung bases through the liver and kidneys with IV contrast. 95 ml o f Isovue 300 was injected IV. Water was used for rectal contrast. The lung bases are clear. The liver is normal. The gallbladder is grossly normal. There is no abnorma lity of the spleen, pancreas, and adrenal glands. Both kidneys are normal in size, shape, position an d contour. There is no hydronephrosis or hydroureter. No renal or ureteral calculi are present. There are no abnormal retrocrural or periaortic nodes, but there has been an increase in number and size o f the lymph nodes in the mesentery of the left upper quadrant. No ascites is present. READIN. There has been modest increase in the number as well as the size of the lymph nodes in the mesent fina of the left upper quadrant since the prior scans. This change may represent reactive changes rela balwinder to the episode of diverticulitis the patient recently had experienced. 2. Scans of the abdomen are otherwise normal. CT PELVIS SCAN WITH IV CONTRAST, 10/05/2016 12:44 PM: Clinical History: See above. Previous Exam: 08/12/2016 and 08/14/2016. Scans are performed from just superior to the umbilicus to the symphysis pubis with IV contrast. This is the same bolus of contrast used for the CT scans of the abdomen. Scans through the lower abdomen and pelvis show no masses or abnormal fluid collections. There is no adenopathy. The appendix is normal. The small bowel, terminal ileum, and ileocecal valve are normal. On the previous scans there is a focus of acute diverticulitis in the proximal sigmoid colon. This po rtion of colon as well as the remaining parts of the colon are normal. There is redundancy of the asc ending, transverse, descending, and sigmoid colon. There is a very small umbilical hernia through whi ch only mesenteric fat has herniated. The uterus remains enlarged. Since the last exam, a cystic stru cture has developed in the region of the left ovary. It measures 30 x 30 x 45 mm and is not related t o the loops of rectosigmoid and sigmoid colon in the left lower quadrant. The right ovary is not visu alized with certainty. READIN. The area of acute diverticulitis in the proximal sigmoid colon has completely resolved. The entir e colon is redundant. 2. There is enlargement of the uterus and since the previous study from 08/12/2016, a cystic lesion h as developed in the left ovary measuring 30 x 30 x 45 mm. This is similar in appearance to loops of c olon in proximity to the rectosigmoid and distal sigmoid colon but clearly appears to be separate fro m the colon.
== END ==
LOC: CT 12:38
PROVIDERS: ATTEND Surgery
DX: K57.32 Diverticulitis of large intestine without perforation or abscess without bleeding (principal); R10.32 Left lower quadrant pain
CPT/HCPCS: 74177

== ENCOUNTER 2016-10-16 06:22 | Day surgery (SDC) | payer BC ==
[~2016-10-16 06:22] MED LIST: LIDOCAINE W/ SODIUM BICARB 0.5 ML SYR ONE; Lactated Ringers 2,000 ML PRIMARY IV ONE; Sodium Chloride 0.9% 100 ML IV ONE
[2016-10-16 06:41] LABS: BILIRUBIN,URINE NEGATIVE (NEG); COLOR,URINE YELLOW; GLUCOSE, URINE (UA) NEGATIVE (NEG); NITRATE,URINE NEGATIVE (NEG); OCCULT BLOOD,URINE NEGATIVE (NEG); PH,URINE 5.5 (5.0-8.5); PROTEIN,URINE NEGATIVE (NEG); UROBILINOGEN,URINE 0.2 mg/dL (0.2)
[2016-10-16] MEDS ORDERED: BUPIVACAINE 0.25% W/ EPI - 10 ML VIAL ONE ×2 (06:45→07:09)
[2016-10-16 06:46] LABS: BACTERIA,URINE FEW; CLARITY,URINE CLEAR (CLEAR); RBC,URINE 0-1 /hpf; SQUAMOUS EPITHELIAL CELL,UR FEW; URINE SAMPLE TYPE CLEAN CATCH URINE; WBC,URINE 0
[2016-10-16] MEDS ORDERED: LIDOCAINE HCL 2 % 10 ML JELLY URO-JECT TOPICAL ONE ×2 (06:51→08:13)
[2016-10-16 06:55] LABS: HEMATOCRIT 38.4 % (37.0-47.0)
[2016-10-16] MEDS ORDERED: ONDANSETRON 4 MG/2 ML VIAL ONE (07:06)
[2016-10-16] MEDS ORDERED: DEXAMETHASONE SOD PHOSPHATE 4 MG/1 ML VIAL ONE (07:07)
[2016-10-16] MEDS ORDERED: Acetaminophen 1000mg Inj 100 ML IV ONE (07:07)
[2016-10-16] MEDS ORDERED: KETAMINE 100 MG/1 ML - 5 ML ONE (07:09)
[2016-10-16] MEDS ORDERED: LIDOCAINE MPF 2% - 5 ML (20 MG/1 ML) ONE (07:09)
[2016-10-16] MEDS ORDERED: MIDAZOLAM 5 MG/1 ML ONE (07:09)
[2016-10-16] MEDS ORDERED: SUFENTANIL 50 MCG/1 ML ONE (07:09)
[2016-10-16] MEDS ORDERED: fentaNYL Inj 250 MCG/5 ML VIAL ONE (07:09)
[2016-10-16] MEDS ORDERED: ROCURONIUM 10 MG/1 ML - 5 ML VIAL IVP ONE (07:10)
[2016-10-16] MEDS ORDERED: Sodium Chloride 0.9% vial 10 ML ONE (07:13)
[2016-10-16] MEDS ORDERED: Lactated Ringers 2,000 ML PRIMARY IV ONE (08:14)
[2016-10-16] MEDS ORDERED: KETOROLAC 30 MG/1 ML VIAL ONE (08:50)
[2016-10-16] MEDS ORDERED: Opium-Belladonna 30-16.2mg 1 EACH SUPP.RECT RECTAL ONE ×2 (08:57)
[2016-10-16] MEDS ORDERED: SUGAMMADEX SODIUM 200 MG/2 ML VIAL IV ONE (09:05)
[2016-10-16] MEDS ORDERED: KETOROLAC 30 MG/1 ML VIAL IVP PRN (09:20)
[2016-10-16] MEDS ORDERED: IBUPROFEN 800 MG TABLET PO PRN (09:20)
[2016-10-16] MEDS ORDERED: NORMAL SALINE 10 ML SYRINGE FLUSH IVP PRN (09:20)
[2016-10-16] MEDS ORDERED: Ondansetron ODT Tab 8 MG TAB PO PRN (09:20)
--- NOTE | 2016-10-16 09:24 | OB.OP.NOTE ---
Operative Report Surgeon: Jesús Senior Air Director: Nathaniel Hunt MD Anesthesia Type: General Anesthesia Provider: Jorge Looney CRNA Surgery Date: 10/16/16 Preoperative Diagnosis: Dysmenorrhea/CPP Postoperative Diagnosis: Same Procedure: da Gilma Hysterectomy with BSO and Cystoscopy Estimated Blood Loss (mL): 50 Fluids: 2700 ml Complications: None Findings at Surgery: The left tube and ovary were adhered to the posterior uterine fundus. Normal right ovary with tube s/p BTL. Retroverted uterus. No visible evidence of bowel, bladder, or ureter injury. At cystoscopy, both ureters ejected urine and the bladder dome was intact. Indications for the Procedure: Dysmenorrhea and CPP after endometrial ablation. Description of Procedure: See dictated operative report. Plan: Routine post op care and discharge to home.
[2016-10-16] MEDS ORDERED: oxyCODONE-ACETAMINOPHEN 5-325 TAB PO ONE ×3 (10:33→15:14)
[2016-10-16] MEDS: oxyCODONE-ACETAMINOPHEN 5-325 TAB PO PRN ×3 (10:35→15:13)
[2016-10-16] MEDS: HYDROmorphone 2 MG/1 ML ONE ×3 (10:44→10:54)
[2016-10-16 15:30] VITALS: RESP 16
[2016-10-16 16:23] VITALS: TEMP 98
[2016-10-16] MEDS ORDERED: DOCUSATE 100 MG CAPSULE PO SCH (21:00)
== END 2016-10-16 16:10 | disposition home or self-care (01) ==
LOC: SDSC 06:22
PROVIDERS: ATTEND Obstetrics & Gynecology
DX: N94.6 Dysmenorrhea, unspecified (principal); N94.12 Deep dyspareunia; R10.2 Pelvic and perineal pain; N83.12 Corpus luteum cyst of left ovary
CPT/HCPCS: 58552; 81001; 84703; 85014; 85018; A4216; J0131; J0694; J1885; J2704; J3010; J1100; J1170; J2001; J2250; J2405; J3490; J7050; J7120

== ENCOUNTER 2017-01-22 07:08 | Day surgery (SDC) | payer BC ==
[2017-01-22] MEDS ORDERED: LIDOCAINE W/ SODIUM BICARB 0.5 ML SYR ONE (07:11)
[2017-01-22] MEDS ORDERED: Lactated Ringers 1,000 ML PRIMARY IV ONE (07:11)
--- NOTE | 2017-01-22 08:28 | GEN.OPNOTE ---
Colonoscopy Procedure Note Surgery Date: 01/22/17 Preoperative Diagnosis: History of diverticulitis Postoperative Diagnosis: Diverticulosis of the sigmoid colon transverse colon and ascending colon. Small sessile polyps 1 mm in diameter seen in the cecum and rectum Procedure: Colonoscopy with biopsies Surgeon: Thomas Riley MD Anesthesia Provider: Geovanna Odom CRNA Anesthesia Type: MAC Indications: Patient has a history of diverticulitis needs a colonoscopy rule out other sources Findings: Prep : Excellent Cecum : Olympus video colonoscopy scope is inserted all the way to the cecum. Ileocecal valve clearly identified. Patient has sessile polyp seen right at that end of the southern ute's foot. Removed with cold biopsy forceps. The polyp measured proximal to 1 mm. Ascending : Ascending colon had scattered diverticulum Transverse : Transverse colon had scattered diverticulum Sigmoid : Descending and sigmoid colon had diverticulosis Rectum : In the rectum approximately 10 cm from anal verge was a 1 mm polyp removed with cold biopsy forceps Digital Rectal Exam : A lubricated flexible colonoscope was inserted and passed to the blind end of the cecum.
[2017-01-22 09:06] VITALS: RESP 14; TEMP 98.4
== END 2017-01-22 08:51 | disposition home or self-care (01) ==
LOC: SDSC 07:08
PROVIDERS: ATTEND Surgery
DX: Z87.19 Personal history of other diseases of the digestive system (principal); K57.90 Diverticulosis of intestine, part unspecified, without perforation or abscess without bleeding; K63.5 Polyp of colon; R10.32 Left lower quadrant pain; Z12.11 Encounter for screening for malignant neoplasm of colon
CPT/HCPCS: 45380; J2704; J7120